=== PATIENT | female | born 1965 | race African-American/Black ===

== ENCOUNTER 2020-10-12 10:09 | Emergency (ER) | payer MEDICAID ==
[~2020-10-12] VITALS: Ht 162.6 cm; Wt 71.0 kg
[2020-10-12] MEDS ORDERED: HYDR12.54 PO (10:14)
[2020-10-12] MEDS ORDERED: CLONIDINE 0.2MG TABLET PO ONE (10:45)
[2020-10-12 11:07] LABS: BASOPHILS % 0.6 % (0.0-2.0); EOSINOPHILS % 1.5 % (0.0-5.0); HEMATOCRIT. 41.9 % (36.0-48.0); LYMPHOCYTES % 48.2 % (20.0-50.0); MEAN CORPUSCULAR HEMOGLOBIN 27.8 pg (28.0-32.0); MEAN PLATELET VOLUME 9.1 fl (7.4-10.4); MONOCYTES % 6.1 % (2.0-8.0); NEUTROPHILS % 43.6 % (40.0-76.0); PLATELET 213 x1000/uL (130-400); RED BLOOD CELL COUNT 5.05 mill/uL (4.2-5.4); RED CELL DISTRIBUTION WIDTH 16.8 % (11.6-14.6)
[2020-10-12 11:50] LABS: CHLORIDE 107 mEq/L (98-107)
[2020-10-12 13:22] VITALS: BP 127/77
[2020-10-12] MEDS ORDERED: HYDR12.54 MT (13:24)
== END 2020-10-12 14:00 | disposition home or self-care (01) ==
LOC: ER 10:09
DX: I10 Essential (primary) hypertension (principal); H53.8 Other visual disturbances; Z91.14 Patient's other noncompliance with medication regimen; Z98.890 Other specified postprocedural states
CPT/HCPCS: 36415; 71045; 80053; 84484; 85025; 93005; 99285